=== PATIENT | male | born 1955 | race American Indian/Alaskan Native ===

== ENCOUNTER 2017-07-16 20:03 | Emergency (ER) | payer SELFPAY ==
[2017-07-16 20:40] VITALS: BP 165/111
== END 2017-07-16 21:35 | disposition left against medical advice (07) ==
LOC: ED 20:03
DX: R07.9 Chest pain, unspecified (principal); Z53.21 Procedure and treatment not carried out due to patient leaving prior to being seen by health care provider
CPT/HCPCS: 93005; 93010